=== PATIENT | female | born 1965 | race Caucasian/White ===

== ENCOUNTER → 2023-01-04 12:09 | Outpatient (CLI) | payer OTHER, MEDICAID, SELFPAY ==
--- NOTE | 2023-01-04 12:10 | DI.US.S_ITS ---
PROCEDURE: US PELVIC COMPLETE INDICATIONS: RIGHT ADNEXAL PAIN TECHNIQUE: Real-time scanning was performed of the pelvic organs, with image documentation. Additional endovaginal scanning was necessary due to incomplete visualization of the adnexal and endometrial structures by transabdominal scanning. COMPARISON: None. FINDINGS: Uterus: Uterus is anteverted and normal in size at 8.1 x 5.9 x 4.7 cm. The myometrium is homogeneous. The endometrium measures 5 mm combined thickness. Mid anterior intramural fibroid measuring 18 mm. Ovaries: The right ovary measures 2.7 x 2.0 x 1.4 cm, with a calculated ovarian volume of 4 cc. The left ovary measures 3.2 x 2.0 x 1.7 cm, with a calculated ovarian volume of 6 cc. The ovaries have a normal sonographic appearance. Less than 12 follicles can be seen in each ovary. No adnexal masses are seen. There are a few punctate calcification within the bilateral ovaries. Other: No pathologic free abdominal or pelvic fluid. IMPRESSION: 1. Uterine fibroid. 2. Punctate calcifications within the bilateral ovaries. Continued sonographic follow-up is recommended to exclude underlying dermoid. We strive to produce accurate, complete, and clear reports of imaging services. To assist us in improving patient care, this report was composed using standard report templates and voice recognition software. Therefore, it may contain abnormal punctuation, insertions and/or omissions. Occasional wrong-word or sound-alike substitutions may occur. Though we review the report and make efforts to correct it, we do recommend that the report be read carefully in proper context to recognize any text inaccuracies. Dictated by: Freya Atkins M.D. on 01/04/2023 at 14:54 Transcribed by: ANASTACIO on 01/04/2023 at 14:55 Approved by: Freya Atkins M.D. on 01/04/2023 at 16:27
== END ==
PROVIDERS: PCP Physician Assistant; Referring Provider Obstetrics & Gynecology; Visit Provider Obstetrics & Gynecology
DX: D25.1 Intramural leiomyoma of uterus (principal); N94.89 Other specified conditions associated with female genital organs and menstrual cycle
CPT/HCPCS: 76830; 76856